=== PATIENT | male | born 1975 | race Caucasian/White ===

== ENCOUNTER 2020-12-12 02:43 | Emergency (ER) | payer OTHER, MEDICARE ==
[2020-12-12] MEDS ORDERED: DOXYCYCLINE HY100 M2 PO (04:41)
[2020-12-12] MEDS ORDERED: PROAIR HFA8.5 GM INH (04:41)
== END 2020-12-12 04:50 | disposition home or self-care (01) ==
LOC: ER1 02:43
DX: U07.1 COVID-19 (principal); J12.82 Pneumonia due to coronavirus disease 2019
CPT/HCPCS: 71045; 99284; U0002